=== PATIENT | female | born 1945 | race Hispanic/Latino ===

== ENCOUNTER 2017-08-08 17:32 | Observation (INO) | payer MEDICARE ==
[~2017-08-08] VITALS: Ht 152.4 cm; Wt 60.0 kg
[~2017-08-08 17:32] MED LIST: DILTIAZEM 24HR180 MG PO; DIOVAN HCT 3201 EACH PO; IRON PO; LISINOPRIL-HCT1 EACH PO; LOPRESSOR25 MG PO; METFORMIN HCL500 MG PO; METOPROLOL TART25 MG PO; MINOCYCLINE HCL50 MG PO; NIFEDIPINE ER30 M1; PRAVASTATIN SOD40 MG PO; ULTRAM 50MG50 MG PO; ZOFRAN ODT4 MG PO
[2017-08-08] MEDS ORDERED: HYDRALAZINE HCL 20 MG/ML VIAL IV STA (18:08)
[2017-08-08 18:34] LABS: BASOPHILS # (AUTO) 0.1 (0.0-0.1); BASOPHILS % 0.9 % (0.0-1.0); EOSINOPHILS # (AUTO) 0.1 (0.0-0.4); EOSINOPHILS % 2.3 % (0.0-6.0); HEMATOCRIT 34.3 % (34.2-44.1); LYMPHOCYTES # (AUTO) 2.2 (1.0-3.2); LYMPHOCYTES % 40.3 % (18.0-39.1); MEAN CORPUSCULAR HEMOGLOBIN 30.7 pg (28-32); MEAN CORPUSCULAR HGB CONC 32.1 g/dL (31-35); MEAN CORPUSCULAR VOLUME 95.8 fL (81-99); MONOCYTES # (AUTO) 0.4 (0.2-0.8); MONOCYTES % 7.9 % (4.4-11.3); NEUTROPHILS # (AUTO) 2.6 (2.1-6.9); NEUTROPHILS % 48.4 % (38.7-80.0); PLATELET COUNT 179 x10e3/uL (140-360); RED BLOOD COUNT 3.58 x10e6/uL (3.6-5.1); RED CELL DISTRIBUTION WIDTH 12.2 % (11.7-14.4)
[2017-08-08 18:43] LABS: INR 0.91; PROTHROMBIN TIME 12.7 seconds (11.9-14.5)
[2017-08-08 18:44] LABS: PARTIAL THROMBOPLASTIN TIME 38.8 seconds (23.8-35.5)
[2017-08-08 18:50] LABS: ALBUMIN 3.7 g/dL (3.5-5.0); ANION GAP 10.9 mmol/L (8-16); CALCIUM 9.2 mg/dL (8.4-10.2); CREATININE, SERUM 1.34 mg/dL (0.57-1.11); POTASSIUM 3.9 mmol/L (3.5-5.1)
--- NOTE | 2017-08-08 18:54 | Diagnostic Imaging Report ---
History:Headaches, weakness Comparison studies:CT head 08/09/2016 Technique: Axial images were obtained from the skull base to the vertex. Coronal and sagittal images reconstructed from the axial data. Intravenous contrast: None Findings: Scalp/skull: No abnormalities. Extra-axial spaces: Incidentally noted air at the left cavernous internal carotid artery, nonspecific. No fluid collections. Brain sulci: Mildly prominent. Ventricles: Mild compensatory dilatation. No hydrocephalus. Parenchyma: Few small hypodensities in the supratentorial white matter are small vessel ischemic changes. No masses, hemorrhage, acute or chronic cortical vascular insults. Sellar/suprasellar region: No abnormalities. Craniocervical junction: Patent foramen magnum. No Chiari one malformation. Incidental findings: Atherosclerotic calcifications in the carotid siphons . Impression: No acute intracranial abnormality. Chronic findings: 1. Mild generalized volume loss. 2. Mild supratentorial white matter small vessel ischemic changes. Signed by: DR John Rodgers M.D. on 08/08/2017 6:50 PM
[2017-08-08 19:01] LABS: CREATINE KINASE MB 1.8 ng/mL (0.00-5.00)
--- NOTE | 2017-08-08 19:39 | Diagnostic Imaging Report ---
EXAMINATION: CHEST SINGLE (NOT PORTABLE) INDICATION: \S\chest pain \S\[id number] \S\1840 \S.br\ COMPARISON: Chest radiograph 06/03/2017 FINDINGS: AP view TUBES and LINES: Dual-lead cardiac pacer with lead tips overlying the right atrium and right ventricle. LUNGS: Lungs are well inflated. Lungs are clear. There is no evidence of pneumonia or pulmonary edema. PLEURA: No pleural effusion or pneumothorax. HEART AND MEDIASTINUM: The cardiomediastinal silhouette is unremarkable. BONES AND SOFT TISSUES: No acute osseous lesion. Soft tissues are unremarkable. UPPER ABDOMEN: No free air under the diaphragm. IMPRESSION: No acute thoracic abnormality. Signed by: DR. Hossein Ng MD on 08/08/2017 7:36 PM
[2017-08-08 20:01] LABS: BILIRUBIN,URINE NEGATIVE (NEGATIVE); KETONES,URINE NEGATIVE (NEGATIVE); LEUKOCYTE ESTERASE ,URINE TRACE (NEGATIVE); NITRITE,URINE NEGATIVE (NEGATIVE); URINE UROBILINOGEN 0.2 mg/dL (0.2 - 1)
[2017-08-08 20:08] LABS: CLARITY,URINE CLEAR (CLEAR); COLOR,URINE YELLOW (YELLOW); PROTEIN,URINE DIPSTICK 2+ (NEGATIVE)
[2017-08-08 20:13] LABS: EPITHELIAL CELLS,URINE RARE /LPF; WBC,URINE (MAN) 0-5 /HPF (0-5)
[2017-08-08] MEDS ORDERED: HYDRALAZINE HCL 20 MG/ML VIAL IV PRN (21:45)
[2017-08-08] MEDS ORDERED: ONDANSETRON HCL INJ 2 MG/ML VIAL IV PRN (21:45)
[2017-08-08] MEDS ORDERED: METOPROLOL TARTRATE 50 MG TAB PO SCH (21:45)
[2017-08-08] MEDS ORDERED: NIFEDIPINE CR 30 MG TAB PO ONE (21:45)
[2017-08-08] MEDS ORDERED: DEXTROSE 50% SYRINGE 50 ML IV PRN (21:45)
[2017-08-09] MEDS ORDERED: HYDRALAZINE HCL 20 MG/ML VIAL ONE (01:03)
[2017-08-09] MEDS ORDERED: NITROGLYCERIN 2% OINT 1 GM PKT TOP ONE (02:00)
[2017-08-09 03:00] VITALS: BP 101/67
[2017-08-09 07:11] LABS: BASOPHILS # (AUTO) 0.1 (0.0-0.1); BASOPHILS % 0.8 % (0.0-1.0); EOSINOPHILS # (AUTO) 0.1 (0.0-0.4); EOSINOPHILS % 1.2 % (0.0-6.0); HEMATOCRIT 35.4 % (34.2-44.1); HEMOGLOBIN 11.6 g/dL (12.0-16.0); LYMPHOCYTES # (AUTO) 1.8 (1.0-3.2); LYMPHOCYTES % 27.2 % (18.0-39.1); MEAN CORPUSCULAR HEMOGLOBIN 30.9 pg (28-32); MEAN CORPUSCULAR HGB CONC 32.8 g/dL (31-35); MEAN CORPUSCULAR VOLUME 94.1 fL (81-99); MONOCYTES # (AUTO) 0.4 (0.2-0.8); MONOCYTES % 6.5 % (4.4-11.3); NEUTROPHILS # (AUTO) 4.2 (2.1-6.9); PLATELET COUNT 200 x10e3/uL (140-360); RED BLOOD COUNT 3.76 x10e6/uL (3.6-5.1); RED CELL DISTRIBUTION WIDTH 12.5 % (11.7-14.4)
[2017-08-09 07:24] LABS: ALBUMIN 3.7 g/dL (3.5-5.0); ALBUMIN/GLOBULIN RATIO 1.1 (0.8-2.0); CALCIUM 9.4 mg/dL (8.4-10.2); CREATININE, SERUM 1.21 mg/dL (0.57-1.11); MAGNESIUM 2.1 MG/DL (1.3-2.1)
[2017-08-09] MEDS ORDERED: INSULIN REGULAR, HUMAN 100 UNIT/1 ML 3ML VIAL SQ SCH ×2 (07:30→11:30)
[2017-08-09 07:31] LABS: CREATINE KINASE MB 1.6 ng/mL (0.00-5.00)
[2017-08-09] MEDS ORDERED: NITROGLYCERIN 2% OINT 1 GM PKT TOP SCH ×2 (08:00→12:00)
[2017-08-09] MEDS ORDERED: NIFEDIPINE CR 30 MG TAB PO SCH (09:00)
[2017-08-09] MEDS ORDERED: ONDANSETRON HCL INJ 2 MG/ML VIAL IV PRN (09:15)
[2017-08-09] MEDS ORDERED: HYDRALAZINE HCL 20 MG/ML VIAL IV PRN (09:15)
[2017-08-09] MEDS ORDERED: DEXTROSE 50% SYRINGE 50 ML IV PRN (09:15)
--- NOTE | 2017-08-09 10:21 | Discharge Summary ---
FINAL DIAGNOSIS: Hypertensive urgency due to noncompliance per test result. SECONDARY DIAGNOSES 1. Chronic kidney disease, stage 3, which is stable. 2. Diet-controlled diabetes. 3. Diet-controlled dyslipidemia. 4. Recent pacemaker placement about 2 months ago. CONSULTANTS: None. STUDIES PERFORMED 1. Head computerized tomography was benign. 2. Chest x-ray was benign. 3. Electrocardiogram showed paced rhythm. HOSPITAL COURSE: Patient was admitted after resuming her metoprolol and nifedipine. Her blood pressure is back under control. Her headache is better. Her troponins are negative times 2. Patient recently had a stress test done, which was unremarkable. Also, a recent echocardiogram was unremarkable as well. Due to the fact that the patient only has Medicare Part A, she cannot afford to see her physicians on an outpatient basis. That is why she is not able to take her blood pressure medicines. In addition, she was supposed to follow up with Dr. Jordan when she was discharged 2 months ago, which she did not do either. At this time, I will have socially responsible investment adviser talk to her, and I will give her another prescription for nifedipine and metoprolol for a month. CONDITION ON DISCHARGE: Stable. DISCHARGE MEDICATIONS: Please see medication reconciliation form. LINDA PEÑALOZA M.D. Job#: [id number] RI
[2017-08-09 12:00] VITALS: BP 163/80
[2017-08-09] MEDS ORDERED: METOPROLOL TARTRATE 50 MG TAB PO SCH (17:00)
[2017-08-10] MEDS ORDERED: NIFEDIPINE CR 30 MG TAB PO SCH (09:00)
== END 2017-08-09 14:01 | disposition home or self-care (01) ==
LOC: ER 17:32 → ERHOLD 21:42 → UNDOADMOB 21:58 → IMCU 08-09 05:59
PROVIDERS: ADMIT Internal Medicine; ATTEND Internal Medicine
DX: I16.0 Hypertensive urgency (principal); R51 Headache; I12.9 Hypertensive chronic kidney disease with stage 1 through stage 4 chronic kidney disease, or unspecified chronic kidney disease; N18.3 Chronic kidney disease, stage 3 (moderate); E11.9 Type 2 diabetes mellitus without complications; E78.5 Hyperlipidemia, unspecified; Z95.0 Presence of cardiac pacemaker
CPT/HCPCS: 36415 ×2; 70450; 71045; 80053 ×2; 81001; 82550 ×2; 82553 ×2; 83735; 83880; 84484 ×2; 85025 ×2; 85610; 85730; 87086; 93005; 96374; 96376; 99284; G0378 ×2; J0360 ×2; J2405

== ENCOUNTER 2017-09-08 15:23 | Emergency (ER) | payer MEDICARE ==
[~2017-09-08] VITALS: Ht 160 cm; Wt 59.9 kg
--- OUTSIDE RECORDS SUMMARY | 2017-09-08 15:26 | XMS REPORT | Continuity of Care Document ---
Author Author [facility] Organization [facility] Address [address] [place] [address] Phone Unavailable Care Team Providers Care Trucksmith Name Role Phone JACQUELIN CAIN PCP Insurance Providers Guarantor Remington Blanca Address [address] [place] [address] Email [email or web address] Payer Medicare A Only Policy Number [id number] Subscriber's Name Remington Blanca Relationship 18 Self / Same As Patient Effective Date 15 Advance Directives Directive Response Recorded Date/Time Does the patient have an advance directive? No 08/09/17 7:48am If yes, is advance directive on file with [facility]? No 08/09/17 7:48am If not on file with [facility] will patient provide a copy? No 08/09/17 7:48am Do you have a Directive to Physician? No 08/08/17 7:17pm Do you have a Medical Power of Dtp Operator? No 08/08/17 7:17pm Do you have an out of hospital Do Not Resuscitate Order? No 08/08/17 7:17pm Do you have any special needs we should be aware of? No 08/08/17 7:17pm Do you have a support person here with you today? Yes 08/08/17 7:17pm Did patient receive Notice of Privacy Practices? Yes 08/08/17 7:17pm Did patient receive patient rights and responsibilities? Yes 08/08/17 7:17pm Problems Medical Problem Onset Date Status Acute renal failure Unknown Anemia Unknown Chest pain Unknown Dehydration 09/23/2015 Acute HTN (hypertension) Unknown Hyperkalemia Unknown Hypertensive urgency Unknown Junctional bradycardia Unknown Myocardial infarct Unknown UTI (urinary tract infection) 09/23/2015 Acute UTI (urinary tract infection) Unknown Medications Current Home Medications Medication Dose Units Route Directions Days Qty Instructions Start Date Metformin Hcl 500 Mg Tablet 1,000 Mg Oral Twice A Day 60 Tab Metoprolol Tartrate (Lopressor) 25 Mg Tab 50 Mg Oral Twice A Day 60 Tab Minocycline Hcl 50 Mg Capsule 100 Mg Oral Twice A Day 60 Tab Nifedipine (Nifedipine Er) 30 Mg Tab.er.24 Twice A Day Pravastatin Sodium 40 Mg Tablet 40 Mg Oral Daily Past Home Medications Medication Directions Ordered Status Diltiazem Hcl (Diltiazem 24HR Er) 180 Mg Capcr, 300 Mg Oral Daily Discontinued Iron , 45 Mg Oral Daily Discontinued Lisinopril/Hydrochlorothiazide (Lisinopril-Hctz 20-12.5 Mg Tab) 1 Each Tablet, 40 Mg Oral Daily Discontinued Metformin Hcl 500 Mg Tablet, 500 Mg Oral Twice A Day Discontinued Metoprolol Tartrate 25 Mg Tablet, 25 Mg Oral Twice A Day Discontinued Metoprolol Tartrate 25 Mg Tablet, 25 Mg Oral Twice A Day Discontinued Ondansetron (Zofran Odt) 4 Mg Tab.rapdis, 4 Mg Oral Every 8 Hours Discontinued Pravastatin Sodium 40 Mg Tablet, 40 Mg Oral Bedtime Discontinued Tramadol Hcl (Ultram 50MG*) 50 Mg Tab, 50 Mg Oral Every 8 Hours Discontinued Valsartan/Hydrochlorothiazide (Diovan Hct 320-25 Mg Tablet) 1 Each Tablet, 1 Tab-Cap Oral Daily Discontinued Social History Social History Problem Response Recorded Date/Time Onset Date Status Hx Psychiatric Problems No 08/09/2017 7:48am Not Applicable Not Applicable Hx Eating Disorder No 08/09/2017 7:48am Not Applicable Not Applicable Hx Substance Use Disorder No 08/09/2017 7:48am Not Applicable Not Applicable Hx Depression No 08/09/2017 7:48am Not Applicable Not Applicable Hx Alcohol Use No 08/09/2017 7:48am Not Applicable Not Applicable Hx Substance Use Treatment No 08/09/2017 7:48am Not Applicable Not Applicable Hx Physical Abuse No 08/09/2017 7:48am Not Applicable Not Applicable Smoking Status Start Date Stop Date Never Smoker Hospital Discharge Instructions No hospital discharge instruction information available. Plan of Care Discharge Date 08/09/17 2:01pm Disposition HOME, SELF-CARE Instructions/Education Provided Hypertension Prescriptions See Medication Section Functional Status Query Response Date Recorded Assistive Devices None August 09, 2017 7:53am Ambulation Ability Minimum Assistance August 09, 2017 7:53am Toileting Ability Independent August 09, 2017 7:53am Allergies, Adverse Reactions, Alerts No known allergies. Immunizations No immunization information available. Vital Signs Acute Vital Signs Vital Response Date/Time Temperature (Fahrenheit) 97.0 degrees F (97.6 - 99.5) 08/09/2017 7:22am Pulse Pulse Rate (adult) 70 bpm (60 - 90) 08/09/2017 7:56am Respiratory Rate 16 bpm (12 - 24) 08/09/2017 7:56am Blood Pressure 101/67 mm Hg 08/09/2017 7:22am Height 5 ft 0 in 08/09/2017 7:48am Weight 132.25 lb 08/09/2017 7:48am Body Mass Index 25.8 kg/m^2 08/09/2017 7:48am Results Laboratory Results Test Name Result Units Flags Reference Collection Date/Time Result Date/ Time Comments Urine Transitional Epithelial Cells FEW H NONE 05/28/2017 9:00pm 05/28 10:12pm Influenza Virus Types A,B Antigen NEGATIVE NEGATIVE 05/27/2017 4:30pm 05/27/2017 5:23pm Lipase 58 U/L 8-78 05/27/2017 4:30pm 05/27/2017 5:24pm Thyroid Stimulating Hormone (TSH) 1.260 uIU/mL 0.350-4.940 05/29/2017 6: 35am 05/29/2017 8:43am Group A Streptococcus Screen NEGATIVE NEGATIVE 05/27/2017 4:30pm 12:30pm Bedside Glucose 111 mg/dL 70-120 06/08/2017 11:34am 06/08/2017 12:05pm Meter ID: [id number] Lactic Acid Level 24.2 MG/DL H 4.5-19.8 06/03/2017 2:03pm 06/03/2017 2: 45pm Triglycerides Level 117 MG/DL 0-149 06/04/2017 5:25am 06/04/2017 7: 06am Cholesterol Level 110 MD/DL 0-199 06/04/2017 5:25am 06/04/2017 7:06am Less than 200 mg/dL Low Risk 201 - 239 mg/dL Borderline Risk 240 mg/dl and greater High Risk LDL Cholesterol 49 MG/DL L 60-130 06/04/2017 5:25am 06/04/2017 7:06am HDL Cholesterol 38 MG/DL L 40-60 06/04/2017 5:25am 06/04/2017 7:06am Cholesterol/HDL Ratio 2.9 L 3.0-3.6 06/04/2017 5:25am 06/04/2017 7: 06am Stool Occult Blood NEGATIVE NEGATIVE 06/05/2017 4:45am 06/05/2017 6: 14am White Blood Count 6.57 x10e3/uL 4.8-10.8 08/09/2017 6:45am 08/09/2017 7 :13am Red Blood Count 3.76 x10e6/uL 3.6-5.1 08/09/2017 6:45am 08/09/2017 7: 13am Hemoglobin 11.6 g/dL L 12.0-16.0 08/09/2017 6:45am 08/09/2017 7:13am Hematocrit 35.4 % 34.2-44.1 08/09/2017 6:45am 08/09/2017 7:13am Mean Corpuscular Volume 94.1 fL 81-99 08/09/2017 6:45am 08/09/2017 7: 13am Mean Corpuscular Hemoglobin 30.9 pg 28-32 08/09/2017 6:45am 08/09/2017 7:13am Mean Corpuscular Hemoglobin Concent 32.8 g/dL 31-35 08/09/2017 6:45am 08/09/2017 7:13am Red Cell Distribution Width 12.5 % 11.7-14.4 08/09/2017 6:45am 2017 7:13am Platelet Count 200 x10e3/uL 140-360 08/09/2017 6:4508/09/2017 7: 13am Neutrophils (%) (Auto) 64.0 % 38.7-80.0 08/09/2017 6:45am 08/09/2017 7: 13am Lymphocytes (%) (Auto) 27.2 % 18.0-39.1 08/09/2017 6:45am 08/09/2017 7: 13am Monocytes (%) (Auto) 6.5 % 4.4-11.3 08/09/2017 6:45am 08/09/2017 7: 13am Eosinophils (%) (Auto) 1.2 % 0.0-6.0 08/09/2017 6:45am 08/09/2017 7: 13am Basophils (%) (Auto) 0.8 % 0.0-1.0 08/09/2017 6:4508/09/2017 7:13am IM GRANULOCYTES % 0.3 % 0.0-1.0 08/09/2017 6:45am 08/09/2017 7:13am Neutrophils # (Auto) 4.2 2.1-6.9 08/09/2017 6:45am 08/09/2017 7:13am Lymphocytes # (Auto) 1.8 1.0-3.2 08/09/2017 6:45am 08/09/2017 7:13am Monocytes # (Auto) 0.4 0.2-0.8 08/09/2017 6:45am 08/09/2017 7:13am Eosinophils # (Auto) 0.1 0.0-0.4 08/09/2017 6:45am 08/09/2017 7:13am Basophils # (Auto) 0.1 0.0-0.1 08/09/2017 6:4508/09/2017 7:13am Absolute Immature Granulocyte (auto 0.02 x10e3/uL 0-0.1 08/09/2017 6: 45am 08/09/2017 7:13am Prothrombin Time 12.7 seconds 11.9-14.5 08/08/2017 6:09pm 08/08/2017 6: 44pm Prothromb Time International Ratio 0.91 08/08/2017 6:09pm 2017 6:44pm Oral Anticoagulant Therapy INR Values: 1. Low Intensity Therapy 1.5 - 2.0 2. Moderate Intensity Therapy 2.0 - 3.0 3. High Intensity Therapy(1) 2.5 - 3.5 4. High Intensity Therapy(2) 3.0 - 4.0 5. Panic Value INR > 5.0 Activated Partial Thromboplast Time 38.8 seconds H 23.8-35.5 08/08/2017 6 :09pm 08/08/2017 6:44pm Urine Color YELLOW YELLOW 08/08/2017 6:07pm 08/08/2017 8:08pm Urine Clarity CLEAR CLEAR 08/08/2017 6:07pm 08/08/2017 8:08pm Urine Specific [place] 1.010 1.010-1.025 08/08/2017 6:07pm 2017 8:08pm Urine pH 6 5 - 7 08/08/2017 6:07pm 08/08/2017 8:08pm Urine Leukocyte Esterase TRACE H NEGATIVE 08/08/2017 6:07pm 2017 8:08pm Urine Nitrite NEGATIVE NEGATIVE 08/08/2017 6:07pm 08/08/2017 8:08pm Urine Protein 2+ H NEGATIVE 08/08/2017 6:07pm 08/08/2017 8:08pm Urine Glucose (UA) NEGATIVE NEGATIVE 08/08/2017 6:07pm 08/08/2017 8: 08pm Urine Ketones NEGATIVE NEGATIVE 08/08/2017 6:07pm 08/08/2017 8:08pm Urine Urobilinogen 0.2 mg/dL 0.2 - 1 08/08/2017 6:07pm 08/08/2017 8: 08pm Urine Bilirubin NEGATIVE NEGATIVE 08/08/2017 6:07pm 08/08/2017 8: 08pm Urine Blood TRACE H NEGATIVE 08/08/2017 6:07pm 08/08/2017 8:08pm Urine WBC 0-5 /HPF 0-5 08/08/2017 6:07pm 08/08/2017 8:13pm Urine RBC NONE /HPF 0-5 08/08/2017 6:07pm 08/08/2017 8:13pm Urine Bacteria NONE /HPF NONE 08/08/2017 6:07pm 08/08/2017 8:13pm Urine Epithelial Cells RARE /LPF NONE 08/08/2017 6:07pm 08/08/2017 8: 13pm Sodium Level 142 mmol/L 136-145 08/09/2017 6:45am 08/09/2017 7:25am Potassium Level 4.0 mmol/L 3.5-5.1 08/09/2017 6:45am 08/09/2017 7:25am Chloride Level 112 mmol/L H 98-107 08/09/2017 6:45am 08/09/2017 7:25am Carbon Dioxide Level 23 mmol/L 22-08/09/2017 6:45am 08/09/2017 7: 25am Anion Gap 11.0 mmol/L 8-16 08/09/2017 6:45am 08/09/2017 7:25am Blood Urea Nitrogen 19 mg/dL 7-08/09/2017 6:45am 08/09/2017 7:25am Creatinine 1.21 mg/dL H 0.57-1.11 08/09/2017 6:45am 08/09/2017 7:25am BUN/Creatinine Ratio 16 6-08/09/2017 6:45am 08/09/2017 7:25am Estimat Glomerular Filtration Rate 44 ML/MIN L 6008/09/2017 6:45am 7:25am Ranges were taken from the National Kidney Disease Education Program and the National Kid[employer] Foundation literature. Reference ranges: 60 or greater: Normal 16-59 (for 3 consecutive months): Chronic kidney disease 15 or less: Kidney failure Glucose Level 162 mg/dL H 74-118 08/09/2017 6:45am 08/09/2017 7:25am Calcium Level 9.4 mg/dL 8.4-10.2 08/09/2017 6:45am 08/09/2017 7:25am Magnesium Level 2.1 MG/DL 1.3-2.1 08/09/2017 6:45am 08/09/2017 7:25am Total Bilirubin 0.4 mg/dL 0.2-1.2 08/09/2017 6:45am 08/09/2017 7:25am Aspartate Amino Transf (AST/SGOT) 15 IU/L 5-34 08/09/2017 6:45am 2017 7:25am Alanine Aminotransferase (ALT/SGPT) 8 IU/L 0-55 08/09/2017 6:45am 08/09 7:25am Total Protein 7.1 g/dL 6.5-8.1 08/09/2017 6:45am 08/09/2017 7:25am Albumin 3.7 g/dL 3.5-5.0 08/09/2017 6:45am 08/09/2017 7:25am Globulin 3.4 g/dL 2.3-3.5 08/09/2017 6:45am 08/09/2017 7:25am Albumin/Globulin Ratio 1.1 0.8-2.0 08/09/2017 6:45am 08/09/2017 7: 25am Alkaline Phosphatase 89 IU/L 40-150 08/09/2017 6:45am 08/09/2017 7: 25am B-Type Natriuretic Peptide 77.3 pg/mL 0-100 08/08/2017 6:09pm 2017 8:20pm Creatine Kinase 38 IU/L 29-168 08/09/2017 6:45am 08/09/2017 7:25am Creatine Kinase MB 1.60 ng/mL 0.00-5.00 08/09/2017 6:45am 08/09/2017 7: 34am Troponin I 0.007 ng/mL 0-0.300 08/09/2017 6:45am 08/09/2017 7:34am Microbiology Results Procedure Source Organism/Result Collection Date/Time Result Date/Time Result Status Blood Culture Blood NO GROWTH AFTER 5 DAYS, FINAL REPORT 06/03/2017 2:03pm 06/08/2017 2:13pm Final Procedures Procedure Status Date Provider(s) INSERT PACE. DUAL RIKI IN CHEST SUBCU/FASCIA, OPEN Completed 06/03/17 RON MILTON MD INSERTION OF PACEMAKER LEAD INTO L VENTRICLE, PERC APPROACH Completed RON MILTON MD INSERTION OF INFUSION DEV INTO SUP VENA CAVA, PERC APPROACH Completed PJ CHÁVEZ MD Ultrasound, renal Active 05/30/17 LINDA PEÑALOZA MD X-ray of chest, single view Active 08/08/17 ROSENDO GRACIA MD Computed tomography of brain without radiopaque contrast Active 08/08/17 ROSENDO GRACIA MD Encounters Encounter Location Arrival/Admit Date Discharge/Depart Date Attending Provider Discharged Inpatient (obs) [facility] 08/08/17 9:42pm 2:01pm LINDA PEÑALOZA MD Discharged Inpatient [facility] 06/03/17 8:49pm 06/08/17 2:25pm LINDA PEÑALOZA MD Discharged Inpatient [facility] 05/27/17 6:53pm 05/30/17 7:20pm LINDA PEÑALOZA MD Discharged Inpatient (obs) [facility] 05/24/17 2:09am 6:43pm LINDA PEÑALOZA MD
--- OUTSIDE RECORDS SUMMARY | 2017-09-08 15:26 | XMS REPORT ---
[facility] Address Unknown Phone Unavailable Care Team Providers Care Cotton Converter Name Role Phone HARRISONDIANA Unavailable Unavailable LINDA PEÑALOZA Unavailable Unavailable Problems This patient has no known problems. Allergies, Adverse Reactions, Alerts This patient has no known allergies or adverse reactions. Medications This patient has no known medications. Results Test Description Test Time Test Comments Text Results Atomic Results Result Comments CT BRAIN WO [place] [address] Patient Name: REMINGTON WINKLER MR #: [id number] : 1945 Age/Sex: 72/F Req #: [id number] Adm Physician: Ordered by: ROSENDO GRACIA MD Report #: [id number] Location: ER Room/Bed: Procedure: [id number] CT/CT BRAIN WO Exam Date: 08/08/17 Exam Time: 1821 REPORT STATUS: Signed History:Headaches, weakness Comparison studies:CT head 08/09/2016 Technique: Axial images were obtained from the skull base to the vertex. Coronal and sagittal images reconstructed from the axial data. Intravenous contrast: None Findings: Scalp/skull: No abnormalities. Extra-axial spaces: Incidentally noted air at the left cavernous internal carotid artery, nonspecific. No fluid collections. Brain sulci: Mildly prominent. Ventricles: Mild compensatory dilatation. No hydrocephalus. Parenchyma: Few small hypodensities in the supratentorial white matter are small vessel ischemic changes. No masses, hemorrhage, acute or chronic cortical vascular insults. Sellar/suprasellar region: No abnormalities. Craniocervical junction: Patent foramen magnum. No Chiari one malformation. Incidental findings: Atherosclerotic calcifications in the carotid siphons . Impression: No acute intracranial abnormality. Chronic findings: 1. Mild generalized volume loss. 2. Mild supratentorial white matter small vessel ischemic changes. Signed by: DR John Rodgers M.D. on 08/08/2017 6: 50 PM Dictated By: JOHN COLLINS MD 49 Transcribed By: MALA on 08/08/171849 COPY TO: ROSENDO GRACIA MD CHEST SINGLE (NOT PORTABLE) [place] [address] Patient Name: REMINGTON WINKLER MR #: [id number] : 1945 Age/Sex: 72/F Req #: [id number] Adm Physician: Ordered by: ROSENDO GRACIA MD Report #: [id number] Location: ER Room/Bed: __ Procedure: [id number] DX/CHEST SINGLE (NOT PORTABLE) Exam Date: 08/08/17 Exam Time: 1840 REPORT STATUS: Signed EXAMINATION: CHEST SINGLE (NOT PORTABLE) INDICATION: COMPARISON: Chest radiograph 06/03/2017 FINDINGS: AP view TUBES and LINES: Dual-lead cardiac pacer with lead tips overlying the right atrium and right ventricle. LUNGS: Lungs are well inflated. Lungs are clear. There is no evidence of pneumonia or pulmonary edema. PLEURA: No pleural effusion or pneumothorax. HEART AND MEDIASTINUM: The cardiomediastinal silhouette is unremarkable. BONES AND SOFT TISSUES: No acute osseous lesion. Soft tissues are unremarkable. UPPER ABDOMEN: No free air under the diaphragm. IMPRESSION: No acute thoracic abnormality. Signed by: DR. Hossein Marcano MD on 08/08/2017 7:36 PM Dictated By: HOSSEIN MARCANO MD 35 Transcribed By: MALA on 08/08/171935 COPY TO: ROSENDO GRACIA MD CHEST SINGLE (PORTABLE) [place] [address] Patient Name: REMINGTON WINKLER MR #: [id number] : 1945 Age/Sex: 72/F Req #: [id number] Adm Physician: LINDA PEÑALOZA MD Ordered by : RON MILTON MD Report #: [id number] Location: ICU Room/Bed: [place] [address] Procedure: [id number] DX/CHEST SINGLE (PORTABLE) Exam Date: 06/03/17 Exam Time: 2104 REPORT STATUS: Signed EXAM: CHEST SINGLE (PORTABLE), AP 1 view DATE: 06/03/2017 9: 00 PM Time stamp on exam: 2105 hours INDICATION: Status post pacemaker COMPARISON: AP view of the chest June 03, 2017 at 1603 hours FINDINGS: LINES/TUBES: Stable position of right subclavian central line. Interval placement of left approach dual chamber pacemaker LUNGS: Bibasilar atelectasis and vascular congestion PLEURA: No effusions or pneumothorax. HEART AND MEDIASTINUM: Stable appearance BONES AND SOFT TISSUES: No acute findings. IMPRESSION: Interval placement of left approach dual chamber pacemaker. No pneumothorax. Signed by: Dr. Andrzej Fischer M.D. on 06/03/2017 9:41 PM Dictated By: ANDRZEJ FISCHER MD 40 Transcribed By: MALA on 06/03/172140 COPY TO: RON MILTON MD CHEST SINGLE (PORTABLE) [place] [address] Patient Name: REMINGTON WINKLER MR #: [id number] : 1945 Age/Sex: 72/F Req #: [id number] Adm Physician: Ordered by: PJ CHÁVEZ MD Report #: [id number] Location: [facility] Room/Bed: Procedure: [id number] DX/CHEST SINGLE (PORTABLE) Exam Date: 06/03/17 Exam Time: 1605 REPORT STATUS: Signed PROCEDURE: A single AP view of the chest. COMPARISON: None. INDICATIONS: POST CENTRAL LINE PLACEMENT FINDINGS: See impression. IMPRESSION: 1. right-sided central line with distal tip projecting in the proximal atrium. 2. Hypoinflated lungs. No consolidation or effusion. 3. Enlarged cardiac silhouette with central pulmonary venous congestion and perihilar interstitial edema. 4. No acute bony abnormalities. Neel Snyder M.D. Dictated by: Neel Snyder M.D. on 06/03/2017 at 17:39 Electronically approved by: Neel Snyder M.D. on 06/03/2017 at 17:39 Dictated By: NEEL SNYDER MD 38 Transcribed By: JAEL on 06/03/171738 COPY TO: PJ CHÁVEZ MD CHEST SINGLE (PORTABLE) [place] [address] [place] [address] Patient Name: REMINGTON WINKLER MR #: [id number] : 1945 Age/Sex: 72/F Req #: [id number] Adm Physician: Ordered by: PJ CHÁVEZ MD Report #: [id number] Location: ER Room/Bed: Procedure: [id number] DX/CHEST SINGLE (PORTABLE) Exam Date: 06/03/17 Exam Time: 1405 REPORT STATUS: Signed PROCEDURE: A single AP view of the chest. COMPARISON: [facility], DX, CHEST SINGLE (PORTABLE), 05/27/2017, 16:47. INDICATIONS: LOWER BACK PAIN FINDINGS: See impression. IMPRESSION: 1. hypoinflated lungs. 2. Enlarged cardiac silhouette, with mild central pulmonary venous congestion. 3. Patchy airspace opacity in the right lower lung, which may reflect atelectasis, and less likely, interstitial or alveolar edema. Neel Snyder M.D. Dictated by: Neel Snyder M.D. on 06/03/2017 at 14:33 Electronically approved by: Neel Snyder M.D. on 06/03/2017 at 14:33 Dictated By: NEEL SNYDER MD 1433 Transcribed By: JAEL on 06/03/17 143 COPY TO: PJ CHÁVEZ MD US RENAL RETROPERITONEAL COMP [place] [address] Patient Name: REMINGTON WINKLER MR #: [id number] : 1945 Age/Sex: 72/F Req #: [id number] [facility] Physician: LINDA PEÑALOZA MD Ordered by : LINDA PEÑALOZA MD Report #: [id number] Location: [facility] Room/Bed: [facility] Procedure: [id number] US/US RENAL RETROPERITONEAL COMP Exam Date: 05/30/17 Exam Time: 1623 REPORT STATUS: Signed EXAM: Renal Ultrasound INDICATION: COMPARISON: Renal ultrasound 08/10/2016 TECHNIQUE: Transverse and longitudinal images of the kidneys and bladder were obtained. FINDINGS : Right Kidney: Size: 11.2 cm Echogenicity: Normal Parenchymal thickness: Normal Collecting system: No hydronephrosis Stones: Interpolar echogenic 0.5 x 0.4 x 0.4 cm focus without twinkle artifact, with shadowing better seen on ultrasound 08/09/2016 likely represents a nonobstructing calculus. Cyst/Mass: None Left Kidney: Size: 11.7 cm Echogenicity: Normal Parenchymal thickness: Normal Collecting system: No hydronephrosis Stones: None Cyst/Mass: None Bladder: Normal IMPRESSION: 1. No hydronephrosis. Normal renal echogenicity. 2. Stable nonobstructing right renal calculus. Signed by: DR. Hossein Marcano MD on 05/30/2017 6:54 PM Dictated By: HOSSEIN MARCANO MD 53 Transcribed By: MALA on 05/30/171853 COPY TO: LINDA PEÑALOZA MD [facility] [place] [address] Patient Name: REMINGTON WINKLER MR #: [id number] : 1945 Age/Sex: 72/F Req #: [id number] Adm Physician: LINDA PEÑALOZA MD Ordered by: LINDA PEÑALOZA MD Report #: [id number] Location: MED/SURG3 Room/Bed: 285-1 Procedure: [id number] DX/ABDOMEN-1VIEW (KUB) Exam Date : 05/28/17 Exam Time: 1739 REPORT STATUS: Signed EXAM: Abdomen, 1 Views INDICATION: Pain. COMPARISON: None available. FINDINGS: LINES: None. Bowel: No air fluid levels.. No pneumoperitoneum.. Large amount of retained feces and air are noted in the colon and rectum. No calcifications project over the renal shadows, expected course of the ureters bilaterally, and bladder. Atherosclerotic calcifications. Pelvic phleboliths. Soft tissues: Normal. Bones: No acute osseous abnormality. Degenerative changes of the lumbar spine and pelvis. Impression: No acute radiographic abnormality. Large amount of retained feces may represent constipation. Signed by: Dr. Kory Artis M.D. on 05/28/2017 5:56 PM Dictated By: KORY ARTIS MD 55 Transcribed By: MALA on 05/28/171755 COPY TO: LINDA PEÑALOZA MD CHEST [facility] (PORTABLE) [place] [address] Patient Name: REMINGTON WINKLER MR #: [id number] : 1945 Age/Sex: 72/F Req #: [id number] Adm Physician: Ordered by: MANDY PADILLA NP Report #: [id number] Location: ER Room/Bed: ___ Procedure: [id number] DX/CHEST SINGLE (PORTABLE) Exam Date: 05/27/17 Exam Time: 1705 REPORT STATUS: Signed PROCEDURE : A single AP view of the chest. COMPARISON: Patients [facility], DX , CHEST SINGLE (PORTABLE), 05/23/2017, 23:15. INDICATIONS: WEAKNESS FINDINGS: Lines/tubes: None. Lungs: The lungs are well inflated and grossly clear. There is no evidence of pneumonia or pulmonary edema. Pleura: There is no pleural effusion or pneumothorax. Heart and mediastinum: Stable enlargement of the cardiac silhouette. Pulmonary vasculature is normal. Bones: No acute bony abnormality. IMPRESSION : 1. stable enlargement of the cardiac silhouette, without acute cardiopulmonary disease. Neel Snyder M.D. Dictated by: Neel Snyder M.D. on 05/27/2017 at 17:31 Electronically approved by : Neel Snyder M.D. on 05/27/2017 at 17:31 Dictated By : NEEL SNYDER MD 30 Transcribed By: JAEL on 05/27/171730 COPY TO: MANDY PADILLA NP Stress Test - Treadmill ONLY [place] [address] Patient Name : REMINGTON WINKLER MR #: [id number] : 1945 Age/Sex: 72/F Adm Physician : LINDA PEÑALOZA MD Admit Date : 05/24/17 Location : [facility] Room/Bed : [place] [address] REPORT: Cardiology Report DATE OF STUDY: May 25, 2017 PROCEDURE TITLE: Rest/stress single isotope SPECT imaging with pharmacologic stress and gated SPECT imaging. INDICATIONS: Chest pain. PROCEDURE: Pharmacologic stress testing was performed with regadenoson per protocol. The heart rate was 60 beats per minute at baseline and increased to 85 beats per minute during the regadenoson infusion. The rest blood pressure was 145/70 and increased to 151/59 mmHg, which is a normal response. The patient did not develop any significant symptoms. The resting electrocardiogram demonstrated normal sinus rhythm. There were no ST segment changes consistent with myocardial ischemia. Next, myocardial perfusion imaging was performed at rest following the injection of 10.6 millicuries of tetrofosmin. At peak pharmacologic effect, the patient was injected with 33 millicuries of tetrofosmin. Gated poststress tomographic imaging was performed. FINDINGS: The overall quality of the study is good. Left ventricular cavity is noted to be normal on the rest and stress studies. SPECT images demonstrate homogeneous tracer distribution throughout the myocardium. Gated SPECT imaging reveals normal myocardial thickening and wall motion. The left ventricular ejection fraction was calculated to be greater than 70%. IMPRESSION: Myocardial perfusion imaging is normal. Overall left ventricular systolic function was normal without regional wall motion abnormalities. 12: 18 Job#: [id number] EV Signature Date Dictated By: CAMILA SETH MD Transcribed By: EDS on 05/26/17 < Electronically signed by CAMILA SETH MD><<Signature on File>>06/23/17 6967 COPY TO: CHEST SINGLE (PORTABLE) [place] [address] Patient Name: REMINGTON WINKLER MR #: [id number] : 1945 Age/Sex: 72/F Req #: [id number] Adm Physician: Ordered by: DIANA TERRY MD Report #: [id number] Location: ER Room/Bed: Procedure: [id number] DX/CHEST SINGLE (PORTABLE) Exam Date: 05/23/17 Exam Time: 2324 REPORT STATUS: Signed CHEST SINGLE ( PORTABLE), 05/23/2017 11:05 PM Technique: CHEST SINGLE (PORTABLE) Comparison: 08/10/2016, 08/09/2016 Clinical history: Chest pain Findings: See Impression Impression: Rotated radiograph partially limits evaluation 1. Stable cardiomediastinal silhouette with prominent aorta given differences in rotation. Consider follow-up upright PA and lateral. 2. No edema or consolidation. 3. No pleural effusion or pneumothorax. Signed by : Dr Chris Hicks MD on 05/23/2017 11:58 PM Dictated By: CHRIS HICKS MD Transcribed By: MALA on 05/23/175 COPY TO: DIANA TERRY MD
[2017-09-08 20:11] LABS: BASOPHILS # (AUTO) 0.1 (0.0-0.1); BASOPHILS % 0.9 % (0.0-1.0); EOSINOPHILS # (AUTO) 0.1 (0.0-0.4); EOSINOPHILS % 1.3 % (0.0-6.0); HEMATOCRIT 34.6 % (34.2-44.1); HEMOGLOBIN 11.3 g/dL (12.0-16.0); LYMPHOCYTES # (AUTO) 2.2 (1.0-3.2); LYMPHOCYTES % 41.1 % (18.0-39.1); MEAN CORPUSCULAR HEMOGLOBIN 30.6 pg (28-32); MEAN CORPUSCULAR HGB CONC 32.7 g/dL (31-35); MEAN CORPUSCULAR VOLUME 93.8 fL (81-99); MONOCYTES # (AUTO) 0.4 (0.2-0.8); MONOCYTES % 8.1 % (4.4-11.3); NEUTROPHILS # (AUTO) 2.6 (2.1-6.9); NEUTROPHILS % 48.4 % (38.7-80.0); PLATELET COUNT 210 x10e3/uL (140-360); RED BLOOD COUNT 3.69 x10e6/uL (3.6-5.1); RED CELL DISTRIBUTION WIDTH 12.5 % (11.7-14.4)
== END 2017-09-08 20:26 | disposition home or self-care (01) ==
LOC: ER 15:23
DX: R42 Dizziness and giddiness (principal); I10 Essential (primary) hypertension; E11.9 Type 2 diabetes mellitus without complications; H54.8 Legal blindness, as defined in USA
CPT/HCPCS: 36415; 85025; 93005; 99283

== ENCOUNTER 2017-10-21 11:42 | Observation (INO) | payer MEDICARE ==
[~2017-10-21] VITALS: Ht 162.6 cm; Wt 54.2 kg
--- OUTSIDE RECORDS SUMMARY | 2017-10-21 11:44 | XMS REPORT | Continuity of Care Document ---
Author Author [facility] Organization [facility] Address [address] [place] [address] Phone Unavailable Care Team Providers Care Automatic Silk Screen Printer Name Role Phone JACQUELIN CAIN PCP Insurance Providers Guarantor Remington Blanca Address [address] [place] [address] Email [email or web address] Payer Medicare A Only Policy Number [id number] Subscriber's Name Remington Blanca Relationship 18 Self / Same As Patient Effective Date 15 Advance Directives Directive Response Recorded Date/Time Does the patient have an advance directive? No 08/09/17 7:48am If yes, is advance directive on file with [facility]? No 08/09/17 7:48am If not on file with [facility] will patient provide a copy? No 08/09/17 7:48am Do you have a Directive to Physician? No 09/08/17 6:19pm Do you have a Medical Power of Electrician Manager? No 09/08/17 6:19pm Do you have an out of hospital Do Not Resuscitate Order? No 09/08/17 6:19pm Do you have any special needs we should be aware of? No 09/08/17 6:19pm Do you have a support person here with you today? Yes 09/08/17 6:19pm Did patient receive Notice of Privacy Practices? Yes 09/08/17 6:19pm Did patient receive patient rights and responsibilities? Yes 09/08/17 6:19pm Problems Medical Problem Onset Date Status Acute [...] information available. Plan of Care Discharge Date 09/08/17 8:26pm Disposition HOME, SELF-CARE Condition at Discharge Stable Instructions/Education Provided Dizziness Forms Provided Work/School Excuse Prescriptions See Medication Section Additional Instructions/Education FOLLOW UP WITH DR. CAIN TOMORROW TAKE MEDICATIONS PRESCRIBED Functional Status No functional status information available. Allergies, Adverse Reactions, Alerts No known allergies. Immunizations No immunization information available. Vital Signs Acute Vital Signs Vital Response Date/Time Temperature (Fahrenheit) 96.8 degrees F (97.6 - 99.5) 08/09/2017 12:00pm Pulse Pulse Rate (adult) 84 bpm (60 - 90) 08/09/2017 12:00pm Respiratory Rate 20 bpm (12 - 24) 08/09/2017 12:00pm Blood Pressure 163/80 mm Hg 08/09/2017 12:00pm Height 5 ft 3 in 09/08/2017 4:58pm Weight 132 lb 09/08/2017 4:58pm Body Mass Index 23.4 kg/m^2 09/08/2017 4:58pm Results Laboratory Results Test Name Result Units [...] 70-120 06/08/2017 11:34am 06/08/2017 12:05pm Meter ID: [id number] Lactic Acid Level 24.2 MG/DL H 4.5-19.8 [...] NEGATIVE NEGATIVE 06/05/2017 4:45am 06/05/2017 6: 14am Prothrombin Time 12.7 seconds 11.9-14.5 08/08/2017 6:09pm [...] CLEAR 08/08/2017 6:07pm 08/08/2017 8:08pm Urine Specific [place] 1.010 1.010-1.025 08/08/2017 6:07pm 2017 8:08pm Urine [...] 08/09/2017 6:45am 08/09/2017 7:25am BUN/Creatinine Ratio 16 6-25 08/09/2017 6:45am 08/09/2017 7:25am Estimat Glomerular Filtration Rate 44 ML/MIN L 60- 08/09/2017 6:45am 7:25am Ranges were taken from the [...] 0.007 ng/mL 0-0.300 08/09/2017 6:45am 08/09/2017 7:34am White Blood Count 5.31 x10e3/uL 4.8-10.8 09/08/2017 5:40pm 09/08/2017 8 :11pm Red Blood Count 3.69 x10e6/uL 3.6-5.1 09/08/2017 5:40pm 09/08/2017 8: 11pm Hemoglobin 11.3 g/dL L 12.0-16.0 09/08/2017 5:40pm 09/08/2017 8:11pm Hematocrit 34.6 % 34.2-44.1 09/08/2017 5:40pm 09/08/2017 8:11pm Mean Corpuscular Volume 93.8 fL 81-99 09/08/2017 5:40pm 09/08/2017 8: 11pm Mean Corpuscular Hemoglobin 30.6 pg 28-32 09/08/2017 5:40pm 09/08/2017 8:11pm Mean Corpuscular Hemoglobin Concent 32.7 g/dL 31-35 09/08/2017 5:40pm 09/08/2017 8:11pm Red Cell Distribution Width 12.5 % 11.7-14.4 09/08/2017 5:40pm 2017 8:11pm Platelet Count 210 x10e3/uL 140-360 09/08/2017 5:40pm 09/08/2017 8: 11pm Neutrophils (%) (Auto) 48.4 % 38.7-80.0 09/08/2017 5:40pm 09/08/2017 8: 11pm Lymphocytes (%) (Auto) 41.1 % H 18.0-39.1 09/08/2017 5:40pm 09/08/2017 8 :11pm Monocytes (%) (Auto) 8.1 % 4.4-11.3 09/08/2017 5:40pm 09/08/2017 8: 11pm Eosinophils (%) (Auto) 1.3 % 0.0-6.0 09/08/2017 5:40pm 09/08/2017 8: 11pm Basophils (%) (Auto) 0.9 % 0.0-1.0 09/08/2017 5:40pm 09/08/2017 8:11pm IM GRANULOCYTES % 0.2 % 0.0-1.0 09/08/2017 5:40pm 09/08/2017 8:11pm Neutrophils # (Auto) 2.6 2.1-6.9 09/08/2017 5:40pm 09/08/2017 8:11pm Lymphocytes # (Auto) 2.2 1.0-3.2 09/08/2017 5:40pm 09/08/2017 8:11pm Monocytes # (Auto) 0.4 0.2-0.8 09/08/2017 5:40pm 09/08/2017 8:11pm Eosinophils # (Auto) 0.1 0.0-0.4 09/08/2017 5:40pm 09/08/2017 8:11pm Basophils # (Auto) 0.1 0.0-0.1 09/08/2017 5:40pm 09/08/2017 8:11pm Absolute Immature Granulocyte (auto 0.01 x10e3/uL 0-0.1 09/08/2017 5: 40pm 09/08/2017 8:11pm Microbiology Results Procedure Source Organism/Result Collection Date/Time [...] Location Arrival/Admit Date Discharge/Depart Date Attending Provider Departed Emergency Room [facility] 09/08/17 3:23pm 8:26pm ELIO CHOUDHARY MD Discharged Inpatient (obs) [facility] 08/08/17 9:42pm 2:01pm LINDA PEÑALOZA MD [facility]patient [facility] 06/03/17 8:49pm 06/08/17 2:25pm LINDA PEÑALOZA MD [facility]patient [facility] 05/27/17 6:53pm 05/30/17 7:20pm LINDA PEÑALOZA MD Discharged [facility]patient (obs) [facility] 05/24/17 2:09am 6:43pm LINDA PEÑALOZA MD
[2017-10-21 12:40] LABS: CLARITY,URINE HAZY (CLEAR); COLOR,URINE YELLOW (YELLOW)
[2017-10-21 12:41] LABS: BILIRUBIN,URINE NEGATIVE (NEGATIVE); KETONES,URINE NEGATIVE (NEGATIVE); LEUKOCYTE ESTERASE ,URINE NEGATIVE (NEGATIVE); NITRITE,URINE NEGATIVE (NEGATIVE); PROTEIN,URINE DIPSTICK 2+ (NEGATIVE); URINE UROBILINOGEN 0.2 mg/dL (0.2 - 1)
--- NOTE | 2017-10-21 12:54 | Diagnostic Imaging Report ---
PROCEDURE: A single AP view of the chest. COMPARISON: 08/08/17 INDICATIONS: WEAKNESS X 3 DAYS FINDINGS: Lines/tubes: Stable left chest wall dual-lead cardiac device in place. Lungs: The lungs are well inflated and clear. There is no evidence of pneumonia or pulmonary edema. Pleura: There is no pleural effusion or pneumothorax. Heart and mediastinum: The heart and the mediastinum are unremarkable. Aorta is mildly tortuous. Bones: No acute bony abnormality. IMPRESSION: 1. No acute cardiopulmonary disease. Dictated by: Zaid Sherman M.D. on 10/21/2017 at 12:55 Electronically approved by: Zaid Sherman M.D. on 10/21/2017 at 12:55
[2017-10-21 12:56] LABS: RBC,URINE 0-5 /HPF (0-5); WBC,URINE (MAN) 0-5 /HPF (0-5)
[2017-10-21 12:57] LABS: BACTERIA,URINE FEW /HPF; EPITHELIAL CELLS,URINE FEW /LPF
[2017-10-21 13:53] LABS: BASOPHILS % 0.8 % (0.0-1.0); EOSINOPHILS # (AUTO) 0.1 (0.0-0.4); HEMATOCRIT 33.2 % (34.2-44.1); HEMOGLOBIN 11.1 g/dL (12.0-16.0); LYMPHOCYTES # (AUTO) 1.6 (1.0-3.2); LYMPHOCYTES % 31.7 % (18.0-39.1); MEAN CORPUSCULAR HEMOGLOBIN 31.1 pg (28-32); MEAN CORPUSCULAR HGB CONC 33.4 g/dL (31-35); MONOCYTES # (AUTO) 0.4 (0.2-0.8); MONOCYTES % 8.2 % (4.4-11.3); NEUTROPHILS % 58.1 % (38.7-80.0); PLATELET COUNT 206 x10e3/uL (140-360); RED BLOOD COUNT 3.57 x10e6/uL (3.6-5.1); RED CELL DISTRIBUTION WIDTH 12.4 % (11.7-14.4)
[2017-10-21 14:06] LABS: INR 1.11; PROTHROMBIN TIME 13.5 seconds (11.9-14.5)
[2017-10-21 14:07] LABS: PARTIAL THROMBOPLASTIN TIME 41.8 seconds (23.8-35.5)
[2017-10-21 14:16] LABS: ALBUMIN 4.2 g/dL (3.5-5.0); ALBUMIN/GLOBULIN RATIO 1.2 (0.8-2.0); ANION GAP 15.1 mmol/L (8-16); CALCIUM 10.3 mg/dL (8.4-10.2); CREATININE, SERUM 1.65 mg/dL (0.57-1.11); POTASSIUM 4.1 mmol/L (3.5-5.1)
--- NOTE | 2017-10-21 14:17 | Diagnostic Imaging Report ---
Examination: CT head without contrast Clinical Indication: Weakness. Technique: Transaxial noncontrast images from the skull base through the vertex were obtained. Sagittal and coronal reformatted images were done. Comparison: Head CT performed August 08, 2017. Findings: Scalp: No abnormalities. Bones: Intact. No fractures. No blastic or lytic lesions. Brain sulci: Mild volume loss for patient's age. Ventricles: No hydrocephalus. Extra-axial space: No abnormalities. Parenchyma: There are subtle patchy areas of low-attenuation within subcortical and periventricular white matter, nonspecific, but could represent microvascular ischemic disease. No masses, hemorrhage, or acute or chronic cortical based vascular insults. Suprasellar region: No abnormalities. Craniocervical junction: The foramen magnum is patent. No Chiari one malformation. Incidental findings: Atherosclerotic calcification of the cavernous and supraclinoid internal carotid and V4 segments of the bilateral vertebral arteries. Impression: 1. No new or acute intracranial abnormality. No change from prior head CT performed August 08, 2017. 2. Unchanged mild chronic microvascular ischemic change and mild volume loss. Signed by: Dr. Emily Cartagena M.D. on 10/21/2017 2:14 PM
[2017-10-21 14:26] LABS: CREATINE KINASE MB 1.5 ng/mL (0-5.0)
[2017-10-21] MEDS ORDERED: ONDANSETRON HCL INJ 2 MG/ML VIAL IV PRN (15:30)
[2017-10-21] MEDS ORDERED: SODIUM CHLORIDE FLUSH 10 ML SYR INJ PRN (15:30)
[2017-10-21] MEDS ORDERED: DEXTROSE 50% SYRINGE 50 ML IV PRN (15:30)
[2017-10-21] MEDS: INSULIN REGULAR, HUMAN 100 UNIT/1 ML 3ML VIAL SQ SCH ×2 (17:34→22:05)
[2017-10-21 22:11] VITALS: BP 186/77
[2017-10-21 22:24] LABS: CREATINE KINASE 44 IU/L (29-168)
[2017-10-21] MEDS ORDERED: NIFEDIPINE CR 30 MG TAB PO ONE (23:00)
[2017-10-21] MEDS ORDERED: HYDRALAZINE HCL 20 MG/ML VIAL IV PRN (23:00)
[2017-10-21 23:40] VITALS: BP 186/77
[2017-10-22] VITALS: BP 128/60
[2017-10-22 04:00] VITALS: BP 139/71
[2017-10-22 06:29] LABS: BASOPHILS % 0.8 % (0.0-1.0); EOSINOPHILS # (AUTO) 0.1 (0.0-0.4); EOSINOPHILS % 1.6 % (0.0-6.0); HEMATOCRIT 32.4 % (34.2-44.1); HEMOGLOBIN 10.8 g/dL (12.0-16.0); LYMPHOCYTES # (AUTO) 1.2 (1.0-3.2); LYMPHOCYTES % 31.5 % (18.0-39.1); MEAN CORPUSCULAR HEMOGLOBIN 31.2 pg (28-32); MEAN CORPUSCULAR HGB CONC 33.3 g/dL (31-35); MEAN CORPUSCULAR VOLUME 93.6 fL (81-99); MONOCYTES # (AUTO) 0.4 (0.2-0.8); MONOCYTES % 9.1 % (4.4-11.3); NEUTROPHILS # (AUTO) 2.2 (2.1-6.9); NEUTROPHILS % 56.7 % (38.7-80.0); PLATELET COUNT 214 x10e3/uL (140-360); RED BLOOD COUNT 3.46 x10e6/uL (3.6-5.1); RED CELL DISTRIBUTION WIDTH 12.5 % (11.7-14.4)
[2017-10-22 07:02] LABS: CALCIUM 9.7 mg/dL (8.4-10.2); CREATININE, SERUM 1.36 mg/dL (0.57-1.11)
[2017-10-22 07:05] LABS: CREATINE KINASE MB < 1.00 ng/mL (0-4.3)
[2017-10-22] MEDS: INSULIN REGULAR, HUMAN 100 UNIT/1 ML 3ML VIAL SQ SCH ×4 (07:30→20:46)
--- NOTE | 2017-10-22 07:56 | Diagnostic Imaging Report ---
EXAMINATION: CHEST SINGLE (PORTABLE) INDICATION: \S\WEAKNESS \S\[id number] \S\0655 COMPARISON: 10/21/2017 and 08/08/2017 FINDINGS: AP view TUBES and LINES: Dual-lead cardiac pacer with lead tips overlying the right atrium and right ventricle. LUNGS: Lungs are well inflated. Lungs are clear. There is no evidence of pneumonia or pulmonary edema. PLEURA: No pleural effusion or pneumothorax. HEART AND MEDIASTINUM: The cardiomediastinal silhouette is unremarkable. BONES AND SOFT TISSUES: No acute osseous lesion. Soft tissues are unremarkable. UPPER ABDOMEN: No free air under the diaphragm. IMPRESSION: No acute thoracic abnormality. Signed by: DR. Hossein Ng MD on 10/22/2017 7:52 AM
[2017-10-22 08:00] VITALS: BP 109/57
[2017-10-22 08:36] LABS: CREATINE KINASE 37 IU/L (29-168)
[2017-10-22 12:00] VITALS: BP 141/65
[2017-10-22 16:00] VITALS: BP 120/59
[2017-10-22] MEDS: ASPIRIN 325 MG TAB PO SCH (16:56)
[2017-10-22] MEDS ORDERED: PRAVASTATIN SOD40 MG PO (18:03)
[2017-10-22] MEDS ORDERED: DIOVAN160 MG PO (18:03)
[2017-10-22] MEDS ORDERED: CARTIA XT300 MG PO (18:03)
[2017-10-22] MEDS ORDERED: HYDROCHLOROTHIA25 MG PO (18:03)
[2017-10-22 20:00] VITALS: BP 127/67
[2017-10-22] MEDS: METOPROLOL TARTRATE 25 MG TAB PO SCH (20:46)
[2017-10-22] MEDS ORDERED: SIMVASTATIN 20 MG TAB PO SCH (21:00)
[2017-10-22] MEDS ORDERED: NIFEDIPINE CR 30 MG TAB PO SCH (21:00)
[2017-10-22] MEDS ORDERED: NON-FORMULARY MEDICATION (Pravastatin Sodium 40 MG) PO SCH (21:00)
[2017-10-23] VITALS: BP 116/57
[2017-10-23 04:00] VITALS: BP 133/64
[2017-10-23 08:00] VITALS: BP 132/63
[2017-10-23] MEDS: INSULIN REGULAR, HUMAN 100 UNIT/1 ML 3ML VIAL SQ SCH ×2 (08:00→11:30)
[2017-10-23] MEDS: METOPROLOL TARTRATE 25 MG TAB PO SCH (08:38)
[2017-10-23] MEDS: ASPIRIN 325 MG TAB PO SCH (08:38)
[2017-10-23 12:00] VITALS: BP 195/81
[2017-10-23] MEDS ORDERED: METFORMIN HCL500 MG PO (13:42)
--- NOTE | 2017-10-23 14:02 | Discharge Summary ---
PRIMARY CARE DOCTOR: Dr. Jacquelin Cain. FINAL DIAGNOSIS: Weakness and dizziness, otherwise nonspecified. SECONDARY DIAGNOSIS 1. Uncontrolled hypertension, better. 2. Stage 3 chronic kidney disease, stable. 3. Likely coronary artery disease, status post permanent pacemaker about 5 months ago. 4. Blind. PROCEDURES/STUDIES PERFORMED: Head computed tomography, which was benign. CONSULTANTS: None. HISTORY: Per H\T\P. HOSPITAL COURSE: Patient was admitted for weakness and dizziness. Currently she is much better. Patient was evaluated by physical therapist and currently is ambulating in the hallway with just standby assist. As far as the etiology for her weakness and dizziness, possibly could be cardiac related. Fortunately, she did not have a myocardial infarction. Her troponins were negative x3. 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 Her troponin peaked at 2. At that time, the plan was outpatient workup with Dr. Jordan. Unfortunately, she never did that. I stressed the importance that she needs to follow up with Dr. Jordan in 1 to 2 weeks. Initially on admission her creatinine was 1.65. Repeat was 1.36. I wonder whether she got a little dehydrated as well. Lastly, I told her to decrease her metformin from 1000 mg twice a day to 500 mg twice a day given the fact that she does have CKD 3 and also her blood sugar is not very elevated. Possibly some mild hypoglycemic could be contributing to her weakness and dizziness. Ideally I wanted her to be on nifedipine extended release for blood pressure control. However, she only has Medicare Part A; so, cost could be an issue. She will continue her home blood pressure medicines. Patient was seen and examined today. CONDITION ON DISCHARGE: Stable. DISCHARGE MEDICATIONS: Please see medication reconciliation form. LINDA PEÑLAOZA M.D. Job#: [id number] EV cc:JACQUELIN CAIN MD
== END 2017-10-23 14:00 | disposition home or self-care (01) ==
LOC: ER 11:42 → ERHOLD 18:49 → MED/SURG2 21:58
PROVIDERS: ADMIT Internal Medicine; ATTEND Internal Medicine
DX: R53.1 Weakness (principal); R51 Headache; E78.5 Hyperlipidemia, unspecified; R42 Dizziness and giddiness; E11.22 Type 2 diabetes mellitus with diabetic chronic kidney disease; I12.9 Hypertensive chronic kidney disease with stage 1 through stage 4 chronic kidney disease, or unspecified chronic kidney disease; N18.3 Chronic kidney disease, stage 3 (moderate); I25.10 Atherosclerotic heart disease of native coronary artery without angina pectoris; Z95.0 Presence of cardiac pacemaker
CPT/HCPCS: 36415 ×3; 70450; 71045 ×2; 80048; 80053; 81001; 82550 ×2; 82553 ×2; 82948 ×3; 83880; 84484 ×2; 85025 ×2; 85610; 85730; 93005 ×2; 97139; 99284; G0378 ×3; J0360

== ENCOUNTER 2018-01-03 11:54 | Emergency (ER) | payer MEDICARE ==
[~2018-01-03] VITALS: Ht 162.6 cm; Wt 54.0 kg
[~2018-01-03 11:54] MED LIST changes: +CARTIA XT300 MG PO; +DIOVAN160 MG PO; +HYDROCHLOROTHIA25 MG PO
[2018-01-03] MEDS ORDERED: PRAVASTATIN SOD40 MG PO (12:05)
[2018-01-03] MEDS ORDERED: METFORMIN HCL500 M1 PO (12:05)
[2018-01-03] MEDS ORDERED: DILTIAZEM 24HR300 MG PO (12:05)
[2018-01-03] MEDS ORDERED: METOPROLOL TART50 MG PO (12:05)
[2018-01-03] MEDS ORDERED: ALENDRONATE SOD70 MG PO (12:05)
[2018-01-03 13:06] LABS: BASOPHILS # (AUTO) 0.1 (0.0-0.1); EOSINOPHILS # (AUTO) 0.1 (0.0-0.4); EOSINOPHILS % 2.1 % (0.0-6.0); HEMATOCRIT 28.6 % (34.2-44.1); HEMOGLOBIN 9.4 g/dL (12.0-16.0); LYMPHOCYTES # (AUTO) 1.5 (1.0-3.2); MEAN CORPUSCULAR HGB CONC 32.9 g/dL (31-35); MEAN CORPUSCULAR VOLUME 97.3 fL (81-99); MONOCYTES # (AUTO) 0.5 (0.2-0.8); MONOCYTES % 9.7 % (4.4-11.3); NEUTROPHILS # (AUTO) 2.8 (2.1-6.9); PLATELET COUNT 184 x10e3/uL (140-360); RED BLOOD COUNT 2.94 x10e6/uL (3.6-5.1); RED CELL DISTRIBUTION WIDTH 12.3 % (11.7-14.4)
[2018-01-03 13:21] LABS: ALANINE AMINOTRANSFERASE 11 IU/L (0-55); ALBUMIN 3.6 g/dL (3.5-5.0); ALBUMIN/GLOBULIN RATIO 1.1 (0.8-2.0); ALKALINE PHOSPHATASE 97 IU/L (40-150); ANION GAP 13.3 mmol/L (8-16); BLOOD UREA NITROGEN 16 mg/dL (7-26); BUN/CREATININE RATIO 13 (6-25); CALCIUM 9.3 mg/dL (8.4-10.2); CARBON DIOXIDE 25 mmol/L (22-29); CHLORIDE 110 mmol/L (98-107); CREATINE KINASE 47 IU/L (29-168); CREATININE, SERUM 1.28 mg/dL (0.57-1.11); EST GLOMERULAR FILTRATION RATE 41 ML/MIN (60-); GLUCOSE 124 mg/dL (74-118); POTASSIUM 4.3 mmol/L (3.5-5.1); SODIUM 144 mmol/L (136-145)
--- NOTE | 2018-01-03 13:28 | Diagnostic Imaging Report ---
PROCEDURE: A single AP view of the chest. COMPARISON: Patients [facility], DX, CHEST SINGLE (PORTABLE), 10/22/2017, 7:07. INDICATIONS: SWOLLEN FEET FINDINGS: Lines/tubes: Stable left upper chest 2-lead cardiac device with distal tips projecting in the right atrium and right ventricle.. Lungs: The lungs are well inflated. There is no evidence of consolidation or pulmonary edema. Pleura: There is no pleural effusion or pneumothorax. Heart and mediastinum: Stable enlargement of the cardiac silhouette. Central pulmonary venous congestion Bones and soft tissues: No acute bony abnormality. Linear metallic density projecting over the distal right clavicle may be external to the patient. IMPRESSION: 1. enlarged cardiac silhouette with central pulmonary venous congestion. Neel Last M.D. Dictated by: Neel Last M.D. on 01/03/2018 at 13:31 Electronically approved by: Neel Last M.D. on 01/03/2018 at 13:31
[2018-01-03] MEDS: FUROSEMIDE INJ 10 MG/ML 2 ML VIAL IV ONE (14:33)
[2018-01-03 14:56] VITALS: BP 172/71
== END 2018-01-03 14:59 | disposition home or self-care (01) ==
LOC: ER 11:54
DX: R60.0 Localized edema (principal); D64.9 Anemia, unspecified; I10 Essential (primary) hypertension; E11.9 Type 2 diabetes mellitus without complications; E78.5 Hyperlipidemia, unspecified
CPT/HCPCS: 36415; 71045; 80053; 82550; 82553; 83735; 83880; 84484; 85025; 93005; 99284; J1940

== ENCOUNTER 2018-04-19 15:54 | Emergency (ER) | payer SELFPAY ==
[~2018-04-19] VITALS: Ht 162.6 cm; Wt 54.0 kg
[~2018-04-19 15:54] MED LIST changes: +ALENDRONATE SOD70 MG PO; +DILTIAZEM 24HR300 MG PO; +METFORMIN HCL500 M1 PO; +METOPROLOL TART50 MG PO
[2018-04-19] MEDS ORDERED: ASPIRIN 81 MG CHEW TAB PO STA (17:04)
[2018-04-19] MEDS ORDERED: ASPIRIN 81 MG CHEW TAB PO ONE (17:15)
[2018-04-19 17:30] LABS: BASOPHILS % 0.9 % (0.0-1.0); EOSINOPHILS # (AUTO) 0.1 (0.0-0.4); HEMOGLOBIN 9.5 g/dL (12.0-16.0); LYMPHOCYTES % 21.1 % (18.0-39.1); MEAN CORPUSCULAR HEMOGLOBIN 30.7 pg (28-32); MEAN CORPUSCULAR HGB CONC 31.7 g/dL (31-35); MEAN CORPUSCULAR VOLUME 97.1 fL (81-99); MONOCYTES # (AUTO) 0.4 (0.2-0.8); MONOCYTES % 9.6 % (4.4-11.3); NEUTROPHILS # (AUTO) 3.1 (2.1-6.9); NEUTROPHILS % 66.2 % (38.7-80.0); PLATELET COUNT 136 x10e3/uL (140-360); RED BLOOD COUNT 3.09 x10e6/uL (3.6-5.1)
[2018-04-19 17:36] LABS: INR 0.99
[2018-04-19 17:37] LABS: PARTIAL THROMBOPLASTIN TIME 42.2 seconds (23.8-35.5)
[2018-04-19 17:43] LABS: ALANINE AMINOTRANSFERASE 22 IU/L (0-55); ALBUMIN 3.9 g/dL (3.5-5.0); ALBUMIN/GLOBULIN RATIO 1.3 (0.8-2.0); ALKALINE PHOSPHATASE 58 IU/L (40-150); BLOOD UREA NITROGEN 26 mg/dL (7-26); BUN/CREATININE RATIO 20 (6-25); CALCIUM 9.9 mg/dL (8.4-10.2); CARBON DIOXIDE 22 mmol/L (22-29); CHLORIDE 108 mmol/L (98-107); CREATINE KINASE 79 IU/L (29-168); CREATININE, SERUM 1.28 mg/dL (0.57-1.11); EST GLOMERULAR FILTRATION RATE 41 ML/MIN (60-); GLUCOSE 100 mg/dL (74-118); SODIUM 140 mmol/L (136-145)
--- NOTE | 2018-04-19 17:57 | Diagnostic Imaging Report ---
EXAMINATION: Head CT HISTORY: Headache, hypertension COMPARISON: Head CT on 10/21/2017 TECHNIQUE: Multidetector axial images were obtained without contrast from the foramen magnum to the vertex . The images were reconstructed using brain and bone algorithms. Thin section brain images were reformatted into coronal and sagittal planes. Intravenous contrast: None. Image quality: Motion/streaking artifact limits the evaluation of the skull base and posterior cranial fossa. Dose modulation, iterative reconstruction, and/or weight based adjustment of the mA/kV was utilized to reduce the radiation dose to as low as reasonably achievable. FINDINGS: Parenchyma: 1. Stable moderate chronic microvascular ischemic changes. 2. No mass or hemorrhage. No CT evidence of acute territorial vascular insult. Extra-axial spaces:No abnormal density. No extra-axial fluid collections Brain volume: Normal for age. Ventricles: No hydrocephalus or displacement. Arteries: No density suggestive of thrombus. Dural sinuses: No abnormal density. Extra-axial spaces: No abnormal density. Foramen magnum: No mass, Chiari malformation, or basilar invagination. Sella: No obvious mass. Paranasal/mastoid sinuses: Imaged portions unremarkable. Skull/Scalp: No lytic or blastic lesions. No fractures. IMPRESSION: 1. No acute intracranial abnormality, particularly no hemorrhage. 2. Stable mild chronic microvascular ischemic changes. Signed by: Dr. Amelia Hawley M.D. on 04/19/2018 5:54 PM
--- NOTE | 2018-04-19 17:58 | Diagnostic Imaging Report ---
Examination: Single AP view of the chest. COMPARISON: None. INDICATION: Chest pain DISCUSSION: Lines/tubes: Dual-lead pacemaker Lungs: The lungs are well inflated. Central venous congestion. No pneumonia or pulmonary edema. Pleura: No pleural effusion or pneumothorax. Heart and mediastinum: Cardiomegaly. Bones and soft tissues: No acute bony abnormalities. IMPRESSION: 1. No acute cardiopulmonary abnormalities. Signed by: Dr. Minesh Huang M.D. on 04/19/2018 5:54 PM
[2018-04-19] MEDS ORDERED: HYDRALAZINE HCL 20 MG/ML VIAL IV STA (18:06)
[2018-04-19 18:34] LABS: BILIRUBIN,URINE NEGATIVE (NEGATIVE); CLARITY,URINE CLEAR (CLEAR); COLOR,URINE YELLOW (YELLOW); KETONES,URINE NEGATIVE (NEGATIVE); LEUKOCYTE ESTERASE ,URINE NEGATIVE (NEGATIVE); NITRITE,URINE NEGATIVE (NEGATIVE); PROTEIN,URINE DIPSTICK 2+ (NEGATIVE); URINE UROBILINOGEN 0.2 mg/dL (0.2 - 1)
[2018-04-19 18:40] LABS: BACTERIA,URINE RARE /HPF; EPITHELIAL CELLS,URINE RARE /LPF; RBC,URINE 0-5 /HPF (0-5); WBC,URINE (MAN) 0-5 /HPF (0-5)
[2018-04-19 20:24] VITALS: BP 158/85
[2018-04-19] MEDS ORDERED: ACETAMINOPHEN 325 MG TAB PO ONE ×2 (20:30)
--- OUTSIDE RECORDS SUMMARY | 2018-04-25 12:45 | XMS REPORT | Clinical Summary ---
Author Author RAULITO [facility] Address Unknown Phone Unavailable Care Team Providers Care Media Supervisor Name Role Phone PCP Unavailable Allergies Active Allergy Reactions Severity Noted Date Comments No Known Drug Allergies 06/29/2011 Current Medications Prescription Sig. Disp. Refills Start End Date Status Date alendronate (FOSAMAX) 70 Take 70 mg by mouth every Active MG tablet 7 days Take in the morning with a full glass of water, on an empty stomach, and do not take anything else by mouth or lie down for the next 30 min. . metoprolol (TOPROL-XL) 50 Take 50 mg by mouth 2 Active MG 24 hr tablet (two) times daily. metFORMIN (GLUCOPHAGE) Take 500 mg by mouth 2 Active 500 MG tablet (two) times daily with breakfast and dinner. aspirin 81 MG EC tablet Take 81 mg by mouth Active daily. dilTIAZem (CARDIZEM CD) Take 300 mg by mouth Active 300 MG 24 hr capsule daily. valsartan-hydrochlorothia Take 1 tablet by mouth 12/05/19 Discontin zide (DIOVAN-HCT) daily. 18 ued 160-12.5 mg per tablet Active Problems Problem Noted Date Angina pectoris with documented spasm (HCC) 12/04/2017 Syncope 12/04/2017 Chest pain 12/03/2017 Encounters Date Type Specialty Care Team Description 12/03/2017 Hospital Cardiology Zeeshan Daniels MD Angina pectoris with - Encounter documented spasm (HCC) 12/04/2017 12/03/2017 Orders Only General Internal Medicine after 04/18/2017 Immunizations Name Dates Previously Given Next Due Pneumococcal Conjugate 12/04/2017 (Prevnar) 13-Valent Social History Tobacco Use Types Packs/Day Years Used Date Unknown If Ever Smoked Sex Assigned at Date Recorded Not on file Last Filed Vital Signs Vital Sign Reading Time Taken Blood Pressure 124/60 12/04/2017 11:36 AM CDT Pulse 60 12/04/2017 11:36 AM CDT Temperature 37.3 C (99.1 F) 12/04/2017 11:36 AM CDT Respiratory Rate 17 12/04/2017 11:36 AM CDT Oxygen Saturation 94% 12/04/2017 11:36 AM CDT Inhaled Oxygen - - Concentration Weight 53.4 kg (117 lb 12.8 oz) 12/03/2017 3:00 PM CDT Height 152.4 cm (5') 12/03/2017 3:00 PM CDT Body Mass Index 23.01 12/03/2017 3:00 PM CDT Plan of Treatment Not on file Results * RHYTHM STRIP - SCAN (12/07/2017 11:13 AM) * POC-Glucose meter (12/04/2017 12:44 PM) Only the most recent of 4 results within the time period is included. Component Value Ref Range POC-Glucose Meter 139 (H)Comment: TESTED AT [address] 70 - 110 mg/dL [facility] [id number] Specimen Performing Laboratory Blood [address] [address] * Basic metabolic panel (12/04/2017 4:15 AM) Only the most recent of 2 results within the time period is included. Component Value Ref Range Sodium 143 136 - 145 meq/L Potassium 3.9 3.5 - 5.1 meq/L Chloride 111 (H) 98 - 107 meq/L CO2 26 22 - 29 meq/L BUN 20 7 - 21 mg/dL Creatinine 1.27 (H) 0.57 - 1.25 mg/dL Glucose 118 (H) 70 - 105 mg/dL Calcium 9.6 8.4 - 10.2 mg/dL EGFR Comment: INSUFFICIENT CLINICAL DATA TO CALCULATE mL/min/1.73 sq m ESTIMATED GFR. Specimen Performing Laboratory Blood [address] [address] * Troponin I (12/04/2017 12:13 AM) Only the most recent of 2 results within the time period is included. Component Value Ref Range Troponin I 0.02 0.00 - 0.03 ng/mL Specimen Performing Laboratory Blood - Arm, Right [address] [address] Narrative Troponin I (TnI) levels must be interpreted in the context of the presenting symptoms and the clinical findings. Elevated TnI levels indicate myocardial damage, but are not specific for ischemic heart disease. Elevated TnI levels are seen in patients with other cardiac conditions (including myocarditis and congestive heart failure), and slight TnI elevations occur in patients with other conditions, including sepsis, renal failure, acidosis, acute neurological disease, and persistent tachyarrhythmia. * ECG 12 lead (12/03/2017 5:26 PM) Specimen Performing Laboratory GE MUSE Narrative Ventricular Rate 63 BPM Atrial Rate 63 BPM P-R Interval 168 ms QRS Duration 94 ms Q-T Interval 410 ms QTC Calculation(Bazett) 419 ms P Sagle 26 degrees R Sagle -15 degrees T Sagle -5 degrees Normal sinus rhythm Septal infarct , age undetermined Inferior infarct , age undetermined Abnormal ECG No previous ECGs available Confirmed by MD Bernal Roberto ([id number]) on 12/04/2017 12:22:44 PM Procedure Note Interface, External Ris In - 12/04/2017 12:22 PM CDT Ventricular Rate 63 BPM Atrial Rate 63 BPM P-R Interval 168 ms QRS Duration 94 ms Q-T Interval 410 ms QTC Calculation(Bazett) 419 ms P Sagle 26 degrees R Sagle -15 degrees T Sagle -5 degrees Normal sinus rhythm Septal infarct , age undetermined Inferior infarct , age undetermined Abnormal ECG No previous ECGs available Confirmed by MD Bernal Roberto ([id number]) on 12/04/2017 12:22:44 PM * XR chest 1 view portable / bedside (12/03/2017 5:06 PM) Specimen Performing Laboratory GE RIS Narrative FINAL REPORT EXAMINATION: AP PORTABLE CHEST RADIOGRAPH CLINICAL INDICATION: Dyspnea. IMPRESSION: Exam is limited by the AP portable supine technique and absence of comparison studies. A left subclavian dual lead cardiac pacing device is noted. The leads are intact where visible. The heart is borderline enlarged for this projection. Mediastinal contours are sharp with a mildly ectatic thoracic aorta. Small nonspecific scattered calcifications are noted, sequela from remote granulomatous disease is favored. A vague approximately 3 cm patchy and nodular density projects over the right midlung just lateral to the right hilum. The finding may reflect artifact from superimposed soft tissue and bony structures. However, a pathologic process (benign versus malignant) cannot be excluded. Curvilinear radiolucencies which project along the peripheral margins of both lungs are favored to reflect artifact. However, evaluation for a small pneumothorax is limited by the supine portable technique. Dedicated upright PA and lateral chest radiographs or chest CT could be performed for further evaluation of the findings detailed above. Signed: Greg Robb MD Report Verified Date/Time:12/03/2017 17:10:34 Reading Location: [address] Reading Room Procedure Note Interface, External Ris In - 12/03/2017 5:12 PM CDT FINAL REPORT EXAMINATION: AP PORTABLE CHEST RADIOGRAPH CLINICAL INDICATION: Dyspnea. IMPRESSION: Exam is limited by the AP portable supine technique and absence of comparison studies. A left subclavian dual lead cardiac pacing device is noted. The leads are intact where visible. The heart is borderline enlarged for this projection. Mediastinal contours are sharp with a mildly ectatic thoracic aorta. Small nonspecific scattered calcifications are noted, sequela from remote granulomatous disease is favored. A vague approximately 3 cm patchy and nodular density projects over the right midlung just lateral to the right hilum. The finding may reflect artifact from superimposed soft tissue and bony structures. However, a pathologic process (benign versus malignant) cannot be excluded. Curvilinear radiolucencies which project along the peripheral margins of both lungs are favored to reflect artifact. However, evaluation for a small pneumothorax is limited by the supine portable technique. Dedicated upright PA and lateral chest radiographs or chest CT could be performed for further evaluation of the findings detailed above. Signed: Greg Robb MD Report Verified Date/Time: 12/03/2017 17:10:34 Reading Location: [address] Reading Room * CBC with platelet count + automated diff (12/03/2017 4:45 PM) Component Value Ref Range WBC 5.6 3.5 - 10.5 K/L RBC 3.31 (L) 3.93 - 5.22 M/L Hemoglobin 10.6 (L) 11.2 - 15.7 GM/DL Hematocrit 32.3 (L) 34.1 - 44.9 % MCV 97.6 (H) 79.4 - 94.8 fL MCH 32.0 25.6 - 32.2 pg MCHC 32.8 32.2 - 35.5 GM/DL RDW 12.5 11.7 - 14.4 % Platelets 187 150 - 450 K/CU MM MPV 11.7 9.4 - 12.3 fL nRBC 0 0 - 0 /100 WBC % Neutros 67 % % Lymphs 22 % % Monos 9 % % Eos 1 % % Baso 1 % # Neutros 3.74 1.56 - 6.13 K/L # Lymphs 1.22 1.18 - 3.74 K/L # Monos 0.52 (H) 0.24 - 0.36 K/L # Eos 0.06 0.04 - 0.36 K/L # Baso 0.04 0.01 - 0.08 K/L Immature 0 0 - 1 % Granulocytes-Relative Specimen [place] [address] * CBC with platelet count + automated diff (12/03/2017 4:45 PM) Specimen Performing Laboratory Blood Narrative The following orders were created for panel order CBC with platelet count + automated diff. Procedure Abnormality Status --------- ------ CBC with platelet count ...[[id number]]AbnormalFinal result Please view results for these tests on the individual orders. * Magnesium (12/03/2017 4:45 PM) Component Value Ref Range Magnesium 2.2 1.6 - 2.6 mg/dL Specimen Performing Laboratory Blood [address] [address] * Hepatic function panel (12/03/2017 4:45 PM) Component Value Ref Range Protein, Total 7.0 6.0 - 8.3 gm/dL Albumin 4.0 3.5 - 5.0 g/dL Total Bilirubin 0.6 0.2 - 1.2 mg/dL Bilirubin, Direct 0.2 0.1 - 0.5 mg/dL Alkaline Phosphatase 72 40 - 150 U/L AST 15 5 - 34 U/L ALT 8 6 - 55 U/L Specimen Performing Laboratory Blood [address] [address] * Lipid panel (12/03/2017 4:45 PM) Component Value Ref Range Triglycerides 84 mg/dL Cholesterol 208 mg/dL HDL 58 mg/dL LDL Calculated 133 mg/dL Specimen Performing Laboratory Blood [facility] [address] [address] Narrative Triglyceride Reference Range: Low Risk <150 [id number] High Risk 200-499 Very High Risk>=500 Cholesterol Reference Range: Low Risk <200 [id number] High Risk>240 HDL Cholesterol Reference Range: Low Risk >=60 High Risk <40 LDL Cholesterol Reference Range: Optimal<100 Near [id number] Very High >=190 after 04/18/2017
--- OUTSIDE RECORDS SUMMARY | 2018-04-25 12:45 | XMS REPORT | Clinical Summary ---
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 preserved. Enthesophytes are seen over the bilateral greater trochanters. Evaluation of the sacrum limited by overlying bowel gas. Moderate stool with frothy appearance within the cecum. Significant vascular calcifications are seen in the bilateral, iliac arteries, external iliac, internal iliac, and femoral arteries. Procedure Note Interface, Rad/Mammog In - 12/03/2017 10:15 AM CDT EXAM: XR PELVIS 1 VIEW DATE: 12/03/2017 9:53 AM INDICATION: fall COMPARISON: CT abdomen pelvis 07/30/2015 TECHNIQUE: A single AP supine radiograph of the pelvis FINDINGS: No acute fracture or malalignment is identified. Hip joint spaces are preserved. Enthesophytes are seen over the bilateral greater trochanters. Evaluation of the sacrum limited by overlying bowel gas. Moderate stool with frothy appearance within the cecum. Significant vascular calcifications are seen in the bilateral, iliac arteries, external iliac, internal iliac, and femoral arteries. IMPRESSION IMPRESSION: 1. No acute bony abnormality of the pelvis. 2. Significant atherosclerotic calcifications of the pelvic and lower extremity arteries. This [facility] radiology report is a preliminary resident dictation until finalized by an attending. Changes to this preliminary report may occur in an additional preliminary or finalized version. Dictated By: Minesh Zheng MD, 12/03/2017 10:05 AM I have reviewed the study and agree with the findings in this report. Signed By: Jono Nolan MD, 12/03/2017 10:10 AM Performing Organization Address City/State/Zipcode Phone Number SMS * BEDSIDE ULTRASOUND (12/03/2017 9:40 AM) Narrative Performed At [facility]ident[facility] 12/03/20179:48 AM Bedside Ultrasound Date/Time: 12/03/2017 9:44 AM Performed by: CLEMENT EDMONDS Authorized by: ELIO FAIR Consent: Consent obtained:Verbal Comments: Bedside cardiac ultrasound. Indication - SOB. PSL, PSS, apical, and subxiphoid views obtained. Small pericardial effusion. LV function estimated to be normal (Normal >55%, depressed 30-55%, severely depressed <30%).IVC normal (flat, normal, plethoric) and minimal collapsible during inspiration. RV nearly size of LV. Performed and interpreted by me. * VBG POC (12/03/2017 9:08 AM) pH, Billy POC 7.50 (H) 7.33 - 7.43 [facility] pCO2, Billy POC 34.3 (L) 38.0 - 50.0 mm Hg [facility] pO2, Billy POC 47 (L) 50 - 75 mm Hg [facility] Base Excess, Billy POC 4 mmol/L [facility] HCO3, Billy POC 26.7 (H) 22.0 - 26.0 mmol/L [facility] % Sat, Billy POC 87 (H) 60 - 85 % [facility] Lactic Acid, Billy POC 0.91 0.4 - 2.0 mmol/L [facility] Sample Type Billy [facility] TCO2, BILLY POC 28 21 - 32 mmol/L [facility] Performing Organization Address [facility] Phone Number [place] [facility] * HIV-1/HIV-2 ROUTINE SCREENING (12/03/2017 9:05 AM) HIV-1/HIV-2 Negative NEG [facility] Performing Organization Address [facility] Phone Number [place] [facility] * D-DIMER (12/03/2017 9:05 AM) D-Dimer 0.49 ug/mL,FEU [facility] Comment: Values of quantitative d-Dimer less than 0.40 ug/mL FEU have been reported to be associated with a low probability of deep vein thrombosis/pulmonary embolism. This test alone should not be used to rule out DVT/PE. Specimen Blood Performing Organization Address [facility] Phone Number [place] [facility] * CBC/DIFF (12/03/2017 9:05 AM) WBC 5.6 4.5 - 11.0 K/uL [facility] RBC 3.19 (L) 4.20 - 5.40 M/uL [facility] Hemoglobin 10.1 (L) 12.0 - 16.0 g/dL [facility] 2 Hematocrit 31.7 (L) 37.0 - 47.0 % [facility] MCV 99 (H) 82 - 92 fL [facility] MCH 31.7 27.0 - 32.0 pg [facility] MCHC 31.9 (L) 32.0 - 36.0 g/dL [facility] RDW 45.9 36.4 - 46.3 fL [facility] 2 Platelet 181 150 - 400 K/uL [facility] 2 Mean Platelet Volume 12.6 (H) 9.4 - 12.4 fL [facility] Percent NRBC 0.0 [facility] Absolute NRBC 0.00 [facility] 2 Neutrophil 74.4 (H) 34.0 - 70.0 % [facility] 2 Lymphocyte 16.3 (L) 20.0 - 50.0 % [facility] 2 Monocyte 7.7 5.0 - 12.0 % [facility] 2 Eosinophil 0.5 (L) 0.7 - 5.0 % [facility] 2 Basophil 0.9 0.1 - 1.2 % [facility] 2 Pct Immat Gran 0.2 0.0 - 0.5 [facility] 2 Neutrophil, Abs 4.17 1.56 - 6.13 K/uL [facility] 2 Lymphocyte, Abs 0.91 (L) 1.18 - 3.74 K/uL [facility] 2 Monocyte, Abs 0.43 (H) 0.24 - 0.36 K/uL [facility] 2 Eosinophil, Abs 0.03 (L) 0.04 - 0.36 K/uL [facility] 2 Basophil, Abs 0.05 0.01 - 0.08 K/uL [facility] 2 Absol Immat Gran 0.01 0.00 - 0.03 K/uL [facility] 2 Specimen Blood Performing Organization Address [facility] Phone Number [facility] 2 * BASIC METABOLIC PANEL (12/03/2017 9:05 AM) CO2 24 21 - 32 mmol/L [facility] [place] [id number] Chloride 108 (H) 98 - 107 mmol/L [facility] 1 Potassium 4.1 3.50 - 5.10 mmol/L [facility] 1 Sodium 143 136 - 145 mmol/L [place] [address] Glucose 183 (H) 70 - 99 mg/dL [facility] 1 Urea Nitrogen 26 (H) 7 - 18 mg/dL [place] [address] Creatinine 1.25 0.60 - 1.30 mg/dL [place] [address] Anion Gap 11 [facility] Calcium 9.5 8.50 - 10.20 mg/dL [facility] 1 GFR, Estimated 42 mL/min/1.73 m2 [place] [address] GFR, Estim, Afr-Am 51 mL/min/1.73 m2 [place] [address] Specimen Blood Performing Organization Address [facility] Phone Number [facility] 1 * 12 LEAD EKG (12/03/2017 9:02 AM) 12 LEAD EKG FOR [facility] Test Date:2017-12-03 Pat Name: REMINGTON Irvin tment: Room: Gender: F 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 01-16 Requested By: Order Number: [email or web address] parmar MD: Clement Baxter Measurements Intervals [place] Rate: 68 P:26 NE: 179 QRS: 1 QRSD: 92 T:27 QT: 374 QTc:399 Interpretive Statements SINUS RHYTHM NONSPECIFIC T-WAVE ABNORMALITY POSSIBLE LEFT ATRIAL ENLARGEMENT POOR R-WAVE PROGRESSION ABNORMAL EKG Electronically Signed On 12-04-17 08:54:34 CDT by Clement Baxter Performing Organization Address City/State/[facility] [place] Phone Number SMS * 12 LEAD EKG (12/03/2017 9:02 AM) 12 LEAD EKG FOR P [facility] Test Date:2017-12-03 Pat Name: REMINGTON Irvin tment: Room: Gender: F 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 01-16 Requested By: Order Number: [email or web address] parmar MD: Clement Baxter Measurements Intervals [place] Rate: 69 P:26 NE: 176 QRS: 1 QRSD: 92 T:3 QT: 375 QTc:402 Interpretive Statements SINUS RHYTHM POSSIBLE LEFT ATRIAL ENLARGEMENT NONSPECIFIC T-WAVE ABNORMALITY POOR R-WAVE PROGRESSION ABNORMAL EKG Electronically Signed On 12-06-17 08:12:05 CDT by Clement Baxter Performing Organization Address City/State/[facility] Solutioncode Phone Number SMS * GLUCOSE POC (12/03/2017 8:48 AM) Glucose POC 217 (H) 74 - 106 mg/dL [facility] Performing Organization Address City/State/Zipcode Phone Number MISYS [facility] after 04/18/2017
== END 2018-04-19 20:29 | disposition home or self-care (01) ==
LOC: ER 15:54
DX: I12.9 Hypertensive chronic kidney disease with stage 1 through stage 4 chronic kidney disease, or unspecified chronic kidney disease (principal); R51 Headache; I25.2 Old myocardial infarction; E11.22 Type 2 diabetes mellitus with diabetic chronic kidney disease; N18.9 Chronic kidney disease, unspecified; E78.5 Hyperlipidemia, unspecified; H54.8 Legal blindness, as defined in USA; Z83.3 Family history of diabetes mellitus; Z82.49 Family history of ischemic heart disease and other diseases of the circulatory system; Z79.84 Long term (current) use of oral hypoglycemic drugs
CPT/HCPCS: 36415; 70450; 71045; 80053; 81001; 82550; 82553; 83880; 84484; 85025; 85610; 85730; 93005; 99283